=== PATIENT | female | born 1970 | race Hispanic/Latino ===

== ENCOUNTER 2019-05-28 16:47 | Observation (INO) | payer OTHER ==
[2019-05-28 17:24] LABS: #Eosinphils 0.1 thou/uL (0.0-0.7); #Lymphocytes 2.2 thou/uL (1.20-3.40); #Monocytes 0.5 thou/uL (0.11-0.59); %Basophils 0.4 % (0.0-1.0); %Eosinophils 2.5 % (0.0-10.0); %Lymphocytes 45.6 % (21.0-51.0); %Neutrophils 41.6 % (42.0-75.0); Hemoglobin 11.6 g/dL (12.0-16.0); Mean Corpuscular Hemoglobin 28.3 pg (27.0-31.0); Mean Corpuscular Volume 88.6 fL (78.0-98.0); Mean Platelet Volume 7.4 fL (7.4-10.4); Platelet Count 234 thou/uL (130-400); RBC Distribution Width 13.3 % (11.5-14.5); White Blood Cell (WBC) Count 4.9 thou/uL (4.8-10.8)
--- NOTE | 2019-05-28 17:32 | RAD ---
CHEST ONE VIEW: HISTORY: Chest pain. COMPARISON: 08/08/2014 FINDINGS: Heart size and mediastinum are within normal limits. There are postop sternotomy changes present. T he lungs are clear of infiltrative process. IMPRESSION: No active intrathoracic disease. POS: DAVID
[2019-05-28 17:46] LABS: ALT (SGPT) 16 U/L (8-55); AST (SGOT) 14 U/L (5-34); Albumin 3.8 g/dL (3.5-5.0); Alkaline Phosphatase 100 U/L (40-150); Anion Gap 10 mmol/L (10-20); BUN (Urea Nitrogen) 14 mg/dL (7.0-18.7); Bilirubin, Total 0.2 mg/dL (0.2-1.2); Calc. Creatinine Clearance 0 mL/min (70-130); Calcium 9.4 mg/dL (7.8-10.44); Carbon Dioxide 26 mmol/L (22-29); Chloride 107 mmol/L (98-107); Estimated GFR-MDRD Greater than 90; Globulin 2.7 g/dL (2.4-3.5); Glucose 115 mg/dL (70-105); Potassium 3.8 mmol/L (3.5-5.1); Protein, Total 6.5 g/dL (6.0-8.3); Sodium 139 mmol/L (136-145)
--- NOTE | 2019-05-28 19:24 | PDOC.FPRHP ---
- History of Present Illness Chief Complaint: Chest Pain, Left Sided Pressure, Dyspnea, Slurred Speech History of Present Illness: Eloisa Delgado is a 48 yo female with PMH significant for aortic valve replacement presented to the ED from intermediate today for chest pain. CP started around 6am today accompanied by facial numbness, generalized weakness, and dizziness. She describes the pain as a left sided pressure. Pt states she has a history of chest pain that normally resolves after a few minutes of rest but this time persisted through the morning. Pt states that previously the pain only occurred when walking around but now can occur at rest. She states she has an upcoming cardiac cath but is unable to provide any details as to who ordered the cath or if she has previously seen a wool hanker. She notes progressive shortness of breath, worsened with exercise but this is a chronic condition. She denied diaphoresis, pleuritic chest pain, LE edema, fever, chills,and pain associated with meals. Of note she endorsed slurred speech with resolution, facial tingling. She had an aortic valve replacement in 2003. She does not recall why she needed a new valve but said she was told "the blood wasn't flowing through right". Pt takes a daily aspirin. Risk factors include family hx of cardiac disease, tobacco use, previous valve replacement. ED Course: In the ED received ASA, initial trop was negative, D-Dimer negative, CBC WNL, CMP WNL, and stable vitals. EKG performed revealed T Wave inversions in her anterior leads consistent with previous prior EKG in 2013. Admitted for OBS, HEART Score 4. - Allergies/Adverse Reactions Allergies Allergy/AdvReac Type Severity Reaction Status Date / Time Penicillins Allergy Verified 05/28/19 21:14 - Home Medications Medication Instructions Recorded Confirmed Type Aspirin [Ecotrin] 81 mg PO DAILY 05/28/19 05/28/19 History Ferrous Gluconate [Fergon] 324 mg PO DAILY 05/28/19 05/29/19 History - History PMHx: Cervical dysplasia PSHx: Laser for cervical dysplasia, aortic valve replacement FHx: Paternal CAD w/ CABG, DM, HLD; Maternal lymphoma; Brother DM Social: Hx of smoking, started at 15 yo smoked half ppd until 2003, now smokes about 1/2 pack per week - Review of Systems General: denies: fever/chills, weight/appetite/sleep changes ENT: denies: nasal congestion, rhinorrhea Respiratory: reports: shortness of breath. denies: cough, congestion Cardiovascular: reports: chest pain Gastrointestinal: reports: nausea. denies: vomiting, diarrhea, constipation, abdominal pain Genitourinary: reports: other (menometrorrhagia) Musculoskeletal: denies: tenderness, swelling Neurological: reports: numbness - Vital signs BP: [] HR: [] RR: [] Tmax: [] Pox: []% on [] Wt: [] BP: 108/63, Pulse: 98 (Regular), Resp: 17 (Non-Labored), Temp: 100.4 (Oral), Pain: 3, O2 sat: 98 on Room Air, Time: 05/28/2019 17:08. - Physical Exam Constitutional: NAD HEENT: normocephalic and atraumatic, MMM Neck: supple, FROM Chest: no-tender to palpation Heart: RRR, normal S1/S2, pulses present, no edema Lungs: CTAB, no respiratory distress, good air movement Abdomen: soft, non-tender Musculoskeletal: ROM grossly normal Neurological: no focal deficit, CN II-XII intact, normal sensation Skin: no rash/lesions, capillary refill <2 seconds Heme/Lymphatic: no purpura Psychiatric: normal mood and affect, good judgment and insight FMR H&P: Results - Labs Result Diagrams: 05/28/19 17:17 05/28/19 17:17 Lab results: WBC 4.9 thou/uL (4.8-10.8) 05/28/19 17:17 Hgb 11.6 g/dL (12.0-16.0) L 05/28/19 17:17 Hct 36.3 % (36.0-47.0) 05/28/19 17:17 MCV 88.6 fL (78.0-98.0) 05/28/19 17:17 Plt Count 234 thou/uL (130-400) 05/28/19 17:17 Neutrophils % 41.6 % (42.0-75.0) L 05/28/19 17:17 Sodium 139 mmol/L (136-145) 05/28/19 17:17 Potassium 3.8 mmol/L (3.5-5.1) 05/28/19 17:17 Chloride 107 mmol/L (98-107) 05/28/19 17:17 Carbon Dioxide 26 mmol/L (22-29) 05/28/19 17:17 BUN 14 mg/dL (7.0-18.7) 05/28/19 17:17 Creatinine 0.65 mg/dL (0.6-1.1) 05/28/19 17:17 Glucose 115 mg/dL (70-105) H 05/28/19 17:17 Calcium 9.4 mg/dL (7.8-10.44) 05/28/19 17:17 Total Bilirubin 0.2 mg/dL (0.2-1.2) 05/28/19 17:17 AST 14 U/L (5-34) 05/28/19 17:17 ALT 16 U/L (8-55) 05/28/19 17:17 Alkaline Phosphatase 100 U/L (40-150) 05/28/19 17:17 Serum Total Protein 6.5 g/dL (6.0-8.3) 05/28/19 17:17 Albumin 3.8 g/dL (3.5-5.0) 05/28/19 17:17 - EKG Interpretation EKG: EKG revealed T wave inversion in anterior leads which is consistent with prior EKG. - Radiology Interpretation Chest x-ray Status: image reviewed by me (CXR WNL. No mediastinal widening, opacifications, pulmonary congestion.) FMR H&P: A/P - Problem List (1) Angina at rest Current Visit: No Status: Acute Code(s): I20.8 - OTHER FORMS OF ANGINA PECTORIS (2) Slurred speech Current Visit: No Status: Acute Code(s): R47.81 - SLURRED SPEECH (3) Anemia Current Visit: No Status: Acute Code(s): D64.9 - ANEMIA, UNSPECIFIED (4) Hyperglycemia Current Visit: No Status: Acute Code(s): R73.9 - HYPERGLYCEMIA, UNSPECIFIED (5) Chest pain Current Visit: No Status: Acute Code(s): R07.9 - CHEST PAIN, UNSPECIFIED - Plan # Atypical Angina Pt was scheduled for heart cath this coming for intermittent chest pain. The pain today did not resolve with rest so she was admitted for observation. Initial trop negative. EKG no changes from previous in 2013, T wave inversions in anterior leads. Hx of aortic valve replacement. - NM stress test pending, NPO after midnight - Trend trops - BNP pending - Started asp, nitro - UDS pending, fasting lipid pending # Slurred Speech - Resolved She has history of drug use. Slurred speech could be etiology from carotid embolus. She does have history of drug use as well so considering bacterial embolus. - ordered echo, carotid doppler. Consider MRI depending on results or if she experiences symptoms again. # Normocytic Anemia Has recently had increased bleeding during periods. - Follow up as outpt. 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 # Hyperglycemia Elevated BG at 115. - Follow as mildly elevated but was done non-fasting. Diet: NPO at midnight Fluids: Good PO intake. Disposition: Eloisa Delgado is under observation for intermittent atypical angina that became worse today compared to her previous episodes, she also experienced slurred speech which resolved so waiting for echo, carotid doppler. FMR H&P: Upper Level - Plan Date/Time: 05/28/191921 PCP: Amilcar- CC HPI: This is a 48 yo F coming in from intermediate with L sided chest pain radiating down left arm and to her neck which started this morning. She had her AV replaced in 2003 for they saw something strange on my echocardiogram and kept me and did surgery. They said it was something I acquired. She states for a long time she has had this pain come on for a few seconds and then go away but today it lasted 5-10 and came and went multiple times. Pain is worse with exertion but can come on at rest. Denies SOB, pleuritic pain, or diaphoresis. 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 She has a 25 pack-year smoking history. She works as a bathroom attendant and states that at one time she had slurring of speech which then resolved. She says she had L sided weakness for a few seconds which then resolved, not really able to say where the weakness was at. Says she has some tingling on the L side. She saw some doctor who told her she would need to see a specialist and maybe have a heart cath. Sounds like this was a primary care doctor but neither guard nor patient are sure and will call in AM. REVIEW OF SYSTEMS: Gen: no fever, chills, or sweats Neuro: + headache Eyes: no visual changes ENT: no hearing changes, no sore throat, no congestion Resp: denies cough, SOB Card: see hpi GI: no N/V/D, no abdominal pain MSK: no myalgias, no joint pain/stiffness Skin: no rash, no erythema PHYSICAL EXAMINATION: General: NAD, alert and oriented x3 HEENT: PERRLA, EOMI, normal sclera, oropharynx without erythema or exudate Neck: Supple. Full ROM. Heart/Cardiovascular System: RRR, Cap refill < 3 seconds, no rub, no murmur Lungs/Respiratory System: CTA-B, no resp distress Abdomen/Gastro-Intestinal System: no abdominal tenderness, normal bowel sounds Extremities: Warm extremities. No cyanosis or edema Neuro: No gross deficits appreciated. CN 2-12 grossly intact. No upper extremity drift, no lower extremity drift, sensation intact and equal bilaterally, strength 5/5 in upper and lower extremity, HINTS negative, no dysmetria, no dysdiadokokinesia Psychiatry: Awake, Alert and cooperative with exam Skin: No lesions, rashes, or ulcers Musculoskeletal: Full ROM EKG: regular, sinus, t inv V1-V3 (these are noted in h&p from 2014) A/P: # Chest Pain r/o ACS - asa, nitro - Stress test in AM, Cards consult if positive - trend trops - HEART: 4, hx of AV replacement - guard will call retirement in AM to figure out who patient saw, sounds like primary care but could have been cardiology patient and guard are not sure. # AV valve replacement - echo ordered, no murmur noted on exam - EF 60-65% in 2013 # left sided numbness - now resolved, NIHSS: 0, HINTS negative - consider TIA although seems unlikely - with history of drug use will check echo - ordered carotid Doppler - consider MRI # Hx of Drug abuse - UDS pending Fluids: TKO Code: full PPx: SCD Dispo: Obs, pending stress Addendum - Attending - Attending Attestation Date/Time: 05/28/192008 I personally evaluated the patient and discussed the management with Dr. Carter and Dr. Ponce I agree with the History, Examination, Assessment and Plan documented above with any addition or exceptions noted below.
[2019-05-28] MEDS ORDERED: Aspirin 325 MG TAB ONE (20:13)
[2019-05-28] MEDS ORDERED: Ondansetron ODT 4 MG TAB PO PRN (20:56)
[2019-05-28 20:57] LABS: Troponin I Less than 0.010 ng/mL (< 0.028)
[2019-05-28] MEDS: Nitroglycerin 0.4 MG TAB (25 Tab Bottle) PO PRN ×3 (21:11→21:44)
[2019-05-28 21:18] VITALS: BMI 28.4
[2019-05-28] MEDS: Acetaminophen 325 MG TAB PO PRN (22:11)
[2019-05-28 22:45] LABS: Amphetamine Not Detected (NotDetected); Barbiturates Screen Not Detected (NotDetected); Benzodiazepine Screen Not Detected (NotDetected); Cocaine Metabolite Screen Not Detected (NotDetected); Medtox Reader # READER 1; Methadone Not Detected (NotDetected); Methamphetamine Not Detected (NotDetected); Opiate Screen Not Detected (NotDetected); Oxycodone Screen Not Detected (NotDetected); Phencyclidine (PCP) Not Detected (NotDetected); THC/Cannabinoid Screen Not Detected (NotDetected); Tricyclic Screen Not Detected (NotDetected)
[2019-05-28 22:46] LABS: Medtox Control Line Valid? VALID (VALID)
[2019-05-28 23:55] LABS: Troponin I Less than 0.010 ng/mL (< 0.028)
[2019-05-29 04:49] LABS: Cardiac Risk 3.6 (Less than 4.5)
[2019-05-29 07:35] LABS: Hemoglobin A1c 5.2 % (4.0-6.0)
--- NOTE | 2019-05-29 08:15 | ULT ---
Ultrasound Doppler duplex carotid: DATE: 05/29/2019 HISTORY: 48-year-old female with acute stroke symptoms: Dysarthria TECHNIQUE: Grayscale, color-flow, and spectral analysis, of major arteries of neck. FINDINGS: Mild atherosclerotic calcified and noncalcified plaque at bilateral proximal internal carotid arterie s, including carotid bulbs. Vertebral artery flow antegrade bilaterally. Highest peak systolic velocities in the internal carotid arteries: Right: 95 cm/s Left: 95 cm/s ICA/CCA ratios: Right: 0.9 Left: 0.9 IMPRESSION: 1. Mild atherosclerosis of bilateral proximal internal carotid arteries. 2. No evidence of hemodynamically significant stenosis in the proximal internal carotid arteries.
[2019-05-29] MEDS ORDERED: ADENOSINE 60 MG/20 ML VIAL ONE (08:59)
[2019-05-29] MEDS: Aspirin 325 mg Enteric Coated Tablet PO SCH (10:05)
--- NOTE | 2019-05-29 12:00 | NM ---
CARDIAC SPECT: HISTORY: A 48-year-old female with chest pain, AVR, smoking history, and family history of coronary a rtery dz. TECHNIQUE: A myocardial perfusion scan was performed using the single-isotope 1-day protocol with Technetium 99m sestamibi. Ten mCi were injected intravenously for the rest exam followed by 30 mCi for the stress study. Pharmacologic stress with adenosine is monitored and interpreted by Dr. Raza. FINDINGS: Homogeneous tracer distribution is seen in the myocardial segments on stress and rest images without fixed or reversible defects. GATED SPECT LVEF: 70%. WALL MOTION EXAM: Normal. IMPRESSION: Normal myocardial perfusion scan. POS: TPC
--- NOTE | 2019-05-29 16:23 | MRI ---
MRI BRAIN WITH AND WITHOUT CONTRAST: DATE: 05/29/2019 HISTORY: 48-year-old female with chronic headache and acute TIA TECHNIQUE: Multiplanar, multisequence MRI of the brain obtained pre and post IV injection of gadolinium based co ntrast agent. FINDINGS: The ventricles are normal in size and configuration. There is no midline shift or any other evidence of mass effect. There is no extra-axial fluid collection. There is no intra-axial signal abnormality, abnormal enhancement, mass, recent hemorrhage, or restricted diffusion. IMPRESSION: Normal
[2019-05-29] MEDS: Acetaminophen 325 MG TAB PO PRN (19:54)
[2019-05-29] MEDS ORDERED: Communication Order-Pharmacy FS SCH (22:30)
--- NOTE | 2019-05-30 00:18 | CON ---
DATE OF CONSULTATION: 05/29/2019 REASON FOR CONSULTATION: Chest pain and pressure. HISTORY OF PRESENT ILLNESS: Ms. Delgado is a pleasant 48-year-old woman. The patient has been having chest pain now for several months. She said she was evaluated by a roving weight gauger apparently in [place] and the plan was to do a heart catheterization later this week. The patient's pain is in the middle of her chest, going across her chest, sometimes gets numb and goes into her left arm. The patient does have a history of heart disease in 2003. She said she had an aortic valve replaced. She does not know the details. Her main symptom was chest pressure at that time. SOCIAL HISTORY: She is currently an inmate at the [facility] longterm. REVIEW OF SYSTEMS: CONSTITUTIONAL: No significant weight gain or loss. Vision , no changes. Hearing, no changes. PULMONARY: No cough or wheezing. GASTROINTESTINAL: No nausea, vomiting, diarrhea. SKIN: No rashes. NEUROLOGIC: Transient left facial numbness. SOCIAL HISTORY: Patient does not smoke. PHYSICAL EXAMINATION: GENERAL: This is a pleasant 48-year-old woman in no distress, blood pressure 104/61, pulse 76 regular. EYES: Sclerae nonicteric. MOUTH: Mucous membranes moist. NECK: Supple. No lymphadenopathy. LUNGS: Clear. No wheezing, rales, or rhonchi. CARDIAC: Normal S1, normal S2. I do not hear murmur, rub, or gallop. ABDOMEN: Soft and nontender. No hepatosplenomegaly. EXTREMITIES: Warm, dry. No clubbing, cyanosis, or edema. LABORATORY DATA: Cardiac enzymes were negative. EKG sinus rhythm with T-wave inversion in V2 and V3 with similar EKG changes she has had before. Echocardiogram has been ordered, but it is still pending. ASSESSMENT: 1. Chest pain, somewhat atypical for angina, but she does have a history of valve replacement. 2. Pt reports previous valve replacement. She has had midline stenotomy visible on CXR. The details of surgery are not available at this point. 3. She had a negative stress test, but she has had normal abnormal EKG. Based on the continued pain, even in the setting of normal stress testing, it is reasonable to proceed to catheterization, which we had been planned as an outpatient in 2 days. Discussed risk of catheterization, stroke, heart attack, iodine allergy, loss of blood supply to the leg or kidney, stent thrombosis, stent restenosis. The patient understands life-threatening complications can occur with stent implantation. We will like to have echocardiogram done prior to going to the cathead operator. The patient understands and wishes to proceed. Job ID: [id number] MTDD
--- NOTE | 2019-05-30 06:32 | PDOC.FM ---
- Subjective Subjective: Feels well, Chest pain resolved just "feels sore." no other concerns at this time. Planning for cath this AM - Objective MAR Reviewed: Yes Vital Signs & Weight: Vital Signs (12 hours) Temp Pulse Resp BP Pulse Ox 05/30/19 04:32 97.7 F 77 14 90/57 L 95 05/29/19 19:07 98.6 F 77 16 104/61 96 Weight Weight 68.22 kg I&O: 05/28/19 05/29/19 05/30/19 06:59 06:59 06:59 Intake Total 240 1320 Output Total 200 1350 Balance 40 -30 Result Diagrams: 05/30/19 07:20 05/30/19 07:20 Phys Exam - Physical Examination Constitutional: NAD HEENT: PERRLA, moist MMs Respiratory: no wheezing, clear to auscultation bilateral Cardiovascular: RRR, no significant murmur chest tender to palpation b/l Gastrointestinal: soft, non-tender Musculoskeletal: no edema Neurological: non-focal, moves all 4 limbs Dx/Plan (1) Anemia Code(s): D64.9 - ANEMIA, UNSPECIFIED Status: Acute (2) Chest pain Code(s): R07.9 - CHEST PAIN, UNSPECIFIED Status: Acute (3) Slurred speech Code(s): R47.81 - SLURRED SPEECH Status: Acute - Plan Plan: 48 yo AAF with hx of aortic valve replacement, family hx of CAD, former smoking and drug history here with atypical chest pain #Atypical chest pain, ACS rule out - Stress test wnl, trops negative x3 -EKG with T wave inversions in V2/V3 however stable compared to 2014 EKG -HEART: 4, hx of AV replacement -seen by Dr. Raza, plans for cath today # AV valve replacement - echo ordered, no murmur noted on exam - EF 60-65% in 2014 # left sided numbness, unknown etiology - now resolved, NIHSS: 0, HINTS negative - brain MRI negative - labs to risk stratify(a1c, FLP) grossly WNL - no focal neurologic findings on exam - carotid dopplers neg. for significant stenosis - UDS negative - continue to observe with warning precautions # Hx of Drug abuse - negatvie Fluids: SL Code: full PPx: SCD Dispo: Obs, pending cardiac cath Discussed with Dr. Amor
[2019-05-30 07:28] LABS: #Basophils 0.1 thou/uL (0.0-0.2); #Eosinphils 0.1 thou/uL (0.0-0.7); #Lymphocytes 1.9 thou/uL (1.20-3.40); #Monocytes 0.4 thou/uL (0.11-0.59); %Basophils 1.7 % (0.0-1.0); %Eosinophils 2.8 % (0.0-10.0); %Lymphocytes 42.3 % (21.0-51.0); %Monocytes 7.9 % (0.0-10.0); %Neutrophils 45.3 % (42.0-75.0); Hemoglobin 12.7 g/dL (12.0-16.0); Mean Corpuscular HGB CONC 32.8 g/dL (32.0-36.0); Mean Corpuscular Hemoglobin 28.9 pg (27.0-31.0); Mean Corpuscular Volume 87.9 fL (78.0-98.0); Mean Platelet Volume 7.4 fL (7.4-10.4); Platelet Count 239 thou/uL (130-400); RBC Distribution Width 13.2 % (11.5-14.5); Red Blood Cell (RBC) Count 4.39 mill/uL (4.20-5.40); White Blood Cell (WBC) Count 4.4 thou/uL (4.8-10.8)
[2019-05-30 07:46] LABS: Anion Gap 12 mmol/L (10-20); BUN (Urea Nitrogen) 15 mg/dL (7.0-18.7); Calc. Creatinine Clearance 121 mL/min (70-130); Calcium 9.1 mg/dL (7.8-10.44); Carbon Dioxide 23 mmol/L (22-29); Chloride 106 mmol/L (98-107); Estimated GFR-MDRD Greater than 90; Glucose 84 mg/dL (70-105); Potassium 3.9 mmol/L (3.5-5.1); Sodium 137 mmol/L (136-145)
[2019-05-30] MEDS ORDERED: Sodium Chloride 0.9% 1,000 ML IV SCH (08:00)
[2019-05-30] MEDS: Aspirin 325 mg Enteric Coated Tablet PO SCH (08:48)
[2019-05-30] MEDS ORDERED: Iopamidol 370 76% 100 ML VIAL ONE (11:49)
[2019-05-30] MEDS ORDERED: Lidocaine 1% (PF) 30 ML VIAL ONE ×2 (12:04→12:18)
[2019-05-30] MEDS ORDERED: Midazolam HCl 2 mg/2 ml Vial ONE (12:41)
[2019-05-30] MEDS ORDERED: Fentanyl 100 MCG/2 ML VIAL ONE (12:41)
--- NOTE | 2019-05-30 12:55 | PRG ---
DATE OF SERVICE: 05/30/2019 Ms. Delgado is a pleasant 48-year-old lady who was admitted with some chest pressure and an episode of slurred speech, possibly due to a TIA. Her workup thus far has concluded a stress test, which was negative for ischemia. Echocardiogram was normal. Carotid Dopplers showed mild atherosclerosis, but no significantly hemodynamically significant stenosis. She has also been seen in consultation by the enterostomal therapy nurse. Based on the fact that she has had aortic valve replacement and continued pain, he felt it would be reasonable to proceed with heart catheterization despite the normal stress Myoview test. This will be accomplished later today. Job ID: [id number]
[2019-05-30] MEDS ORDERED: Nitroglycerin 100MG/250ML BOT 250 ML ONE (13:13)
[2019-05-30] MEDS ORDERED: ISOVUE-370 76%-LOCM 1 ML ONE (13:35)
[2019-05-30] MEDS ORDERED: Sodium Chloride 0.9% 200 ML IV PRN (13:45)
[2019-05-30] MEDS ORDERED: Acetaminophen/Codeine 30-300mg Tablet PO PRN ×2 (13:45)
[2019-05-30] MEDS ORDERED: Nitroglycerin 0.4 MG TAB (25 Tab Bottle) SL PRN (13:45)
[2019-05-30 13:59] LABS: INR-International Normal Ratio 1.2; Prothrombin Time 15.3 SEC (12.0-14.7)
[2019-05-30 14:02] LABS: D-Dimer Test 0.27 *mcg/mL (0.27-0.43)
[2019-05-30 15:52] VITALS: BP 102/64; TEMP 98.1
--- NOTE | 2019-05-30 16:41 | CT ---
CT arteriogram abdomen and pelvis with IV contrast and 3-D imaging HISTORY: Abdomen pain. Possible right iliac stenosis. FINDINGS: There is good contrast opacification of the abdominal aorta and visceral arteries. No signi ficant stenosis. Each iliac and common femoral artery are patent. No significant stenosis or perivascular fluid collec tion. Subtle stranding around the right common femoral artery is consistent with recent vascular procedure. No evidence of hemorrhage or adjacent hematoma. Multiple tiny nonspecific low-density lesions are scattered throughout the parenchyma of the liver. 2 small to characterize. Likely cysts. A 2.7 cm dominant follicle arises from the right ovary. Uterus is somewhat lobulated and enlarged. Physiologic amount of free fluid in the pelvis. IMPRESSION: No acute vascular abnormalities are demonstrated. Right femoral artery is widely patent w ithout associated abnormalities. Fibroid appearance of the uterus.
[2019-05-30] MEDS ORDERED: Atorvastatin Calcium 40 MG TAB PO SCH (21:00)
[2019-05-30] MEDS ORDERED: Atorvastatin Calcium 20 MG TAB PO SCH (21:00)
--- NOTE | 2019-05-31 09:18 | CCL ---
CARDIOLOGY PROCEDURE NOTE: DATE OF PROCEDURE: 05/30/19 PROCEDURE: Left heart catheterization. DESCRIPTION OF PROCEDURE: The patient was brought to the cardiac catheterization lab in the fasting state. She was sedated. She was prepped and draped in the usual fashion. The right groin was anesthetized with 1% Xylocaine. Subsequently, under ultrasound guidance, a micropuncture kit was used to obtain access to the right femoral artery on the first attempt. Subsequently, coronary angiography was done with Dena left-4 catheter. A JR4 catheter was used for the right coronary, but it looked like it was going into the conus; therefore, that was withdrawn and a 3DRC catheter was used which cannulated the right coronary artery, somewhat of an anomalous location. All of the catheters were withdrawn over a J-wire. No left ventriculogram was done as she has known normal left ventricular function and normal aortic valve. RESULTS: 1. LEFT MAIN: Normal. 2. LAD: Normal. 3. CIRCUMFLEX: Small distribution, normal. 4. RIGHT CORONARY ARTERY: Large distribution, normal. 5. The patient did have some narrowing of the right iliac on the angiogram. It was difficult to tell where this was spasming. She was given 2 does of intra- arterial nitroglycerin, but there was still a narrowing gin the vessel. Therefore, will do CT angiogram just to look to see if there is any narrowing of the iliacs. CONCLUSION: 1. Normal coronary arteries. 2. Some narrowing of the right iliac, question spasm vs. atherosclerosis. CT angiogram will be done to clarify this issue. ADDENDUM, CT ANGIOGRAM OF ILIACS NORMAL. NEHEMIASD
[2019-05-31 13:48] LABS: Protein C Activity 97 % (78-152)
[2019-05-31 17:33] LABS: Cardiolipin IgA Ab 2.3 APL-U/mL (<14 Negative); Cardiolipin IgG Ab 0.6 GPL-U/mL (<10 Negative); Cardiolipin IgM Ab 4.3 MPL-U/mL (<10 Negative); EliA APS New Method **** NEW METHOD ****
--- NOTE | 2019-06-01 07:55 | DIS ---
DATE OF ADMISSION: 05/28/2019 DATE OF DISCHARGE: 05/30/2019 ADMITTING ATTENDING: Georgina Dailey MD DISCHARGE ATTENDING: Everardo Amor MD. RESIDENT: Georgina Dailey, PGY-1 CONSULTS: 1. Cardiology, Dr. Raza. 2. Cardiac rehab. PROCEDURES AND IMAGIN. Transthoracic echo: EF 55% to 60%. Mild mitral regurg. Trace tricuspid regurg. Trace pulmonic insufficiency. Otherwise unremarkable. 2. Nuclear stress test, normal myocardial perfusion scan. 3. Cardiac cath: Normal coronary arteries, right iliac, questionable spasm versus atherosclerosis. 4. CTA of abdomen and pelvis. No acute vascular abnormalities. Right femoral artery is patent with associated abnormalities. 5. Brain MRI normal. 6. Carotid Doppler: Mild atherosclerosis of bilateral proximal internal carotid arteries but no evidence of hemodynamically significant stenosis in the proximal internal carotid arteries. PRIMARY DIAGNOSES: 1. Musculoskeletal chest pain-acute coronary syndrome ruled out. 2. Resolved episode of slurred speech. SECONDARY DIAGNOSES: 1. Normocytic anemia. 2. Hyperglycemia. 3. Incarceration. HISTORY OF PRESENT ILLNESS/HOSPITAL COURSE: Ms. Eloisa Delgado is an incarcerated 48-year-old female, who was brought to the ER for several complaints most pertinent one being typical chest pain. She was admitted overnight for ACS rule out. Cardiac enzymes were negative. Nuclear stress test was negative. However, she underwent cardiac cath which also was unremarkable with results listed above. She did undergo CT angio and imaging with cath, which showed narrowing of the right iliac spasm versus atherosclerosis. A follow up CT angiogram of abdomen and pelvis was negative for acute vascular abnormalities with a widely patent right femoral artery. Echo was essentially normal as well. Chest pain is reproducible, likely musculoskeletal, recommended ibuprofen. The patient also complained of resolved episode of slurred speech. No risk factors. A carotid Doppler and brain MRI were negative. UDS is also negative. No events recorded on tele monitor. The patient has followup with cardiology and consider Holter monitor versus event recorder. The patient's symptoms improved and resolved upon discharge. DISCHARGE CONDITION: Stable. DISCHARGE INSTRUCTIONS: 1. Location: Group Home. 2. Diet: Heart healthy. 3. Activity: Ad dany as tolerated. FOLLOWUP: 1. Please follow up with outpatient Cardiology this week. 2. Please consider a Holter monitor or event recorder to further workup the episode of slurred speech. 3. Please follow up with alf PCP. Job ID: [id number] NOAH
== END 2019-05-30 18:04 ==
LOC: ERS 16:47 → 2SW 18:52
PROVIDERS: ADMIT Student in an Organized Health Care Education/Training Program; ATTEND Student in an Organized Health Care Education/Training Program
PROC: 4A023N7 Measurement of Cardiac Sampling and Pressure, Left Heart, Percutaneous Approach (ICD-10-PCS; principal; 2019-05-30)
PROC: B2111ZZ Fluoroscopy of Multiple Coronary Arteries using Low Osmolar Contrast (ICD-10-PCS; 2019-05-30)
DX: R07.89 Other chest pain (principal); R47.81 Slurred speech; D64.9 Anemia, unspecified; R73.9 Hyperglycemia, unspecified; R20.0 Anesthesia of skin; I65.23 Occlusion and stenosis of bilateral carotid arteries; I34.0 Nonrheumatic mitral (valve) insufficiency; I36.1 Nonrheumatic tricuspid (valve) insufficiency; F17.210 Nicotine dependence, cigarettes, uncomplicated; F41.9 Anxiety disorder, unspecified; F31.9 Bipolar disorder, unspecified; Z86.79 Personal history of other diseases of the circulatory system; Z95.4 Presence of other heart-valve replacement; Z88.0 Allergy status to penicillin; Z79.899 Other long term (current) drug therapy
CPT/HCPCS: 36415; 70553; 71045; 74174; 76942; 78452; 80048; 80053; 80061; 80306; 81240; 81241; 83036; 83090; 83880; 84484; 85025; 85240; 85300; 85303; 85305; 85307; 85379; 85598; 85610; 85730; 86147; 90471; 90732; 93005; 93017; 93306; 93454; 93880; 94760; 96360; 96361; 99152; 99153; A9500; C1769; G0009; G0378; J0153; J1644; J2001; J2250; J3010; Q9966; Q9967